=== PATIENT | male | born 1960 | race Caucasian/White ===

== ENCOUNTER → 2016-12-10 | Outpatient (CLI) | payer BC ==
[~2016-12-10] MED LIST: HYDR-3702 PO; NO HOME MEDICATIONS
[2016-12-10 12:05] VITALS: BP 130/82
--- NOTE | 2016-12-10 12:05 | Urgent Care T Sheet Gen (E) ---
Intake General Temperature (Fahrenheit): 97.9 Pulse: 74 Blood Pressure Systolic: 130 Blood Pressure Diastolic: 82 Respirations: 20 SPO2: 97 Description of Symptoms Patient presents with illness x 1 month. States the symptoms worsened over the past few days. Notes nasal congestion, PND and productive cough. No meds to treat his symptoms. States he figured it was a cold and would resolve on it's own. History of Present Illness Allergies: Coded Allergies: No Known Drug Allergies (Unverified , 03/30/14) Home Meds Active Scripts Hydrocodone/Acetaminophen ([place] 5mg/325mg)1 Each Tablet1 Each PO Q4H PRN PAIN # 15 Prov:ESTUARDO KELLY MD 03/30/14 Reported Medications No Home Medications Ea 03/30/14 Respiratory Constitutional Symptoms: No Fever, Malaise EENTM: Nose Congestion Throat pain Respiratory: Cough Cardiovascular: No symptoms reported Gastrointestinal/Abdominal: No symptoms reported All Other Systems Reviewed Remaining Systems: All other systems reviewed with negative findings Past [id number] Hx Surgeries/Hospitalizations Hospitalization/Surgery Hx: R ANKLE, TRIGGER FINGER CYST REMOVAL Respiratory Respiratory History: None Cardiovascular Cardiovascular History: Hypercholesterolemia Reproductive System Sexually Transmitted Diseases: No Gastrointestinal GI/Endocrine History: Thyroid disorder Diabetes Diabetes: No HEENT Impaired Vision: Contacts Hearing Impaired: None Integumentary Integumentary History: Other, see comments Comment: LACERATION Psychosocial Behavior Disorders: None Physical Exam Physical Exam General Appearance: WD/WN No apparent distress Eyes, Ears, Nose, Throat Ex: TMs normal (air fluid bubbles) Pharyngeal erythema (cobblestone appearance) Other (red, swollen nasal turbinates) Neck Exam: Supple Lymphadenopathy Respiratory Exam: Lungs clear Normal breath sounds Cardiovascular Exam: Regular rate, rhythm Departure Urgent Care Impression Impression: Primary Impression: Sinusitis Qualified Code: J01.00 - Acute maxillary sinusitis, unspecified Departure Disposition: HOME OR SELF-CARE Condition: Stable Referrals: STEVIE HALLMAN MD (PCP) Additional Instructions: I have started the patient on a Z-pack, use as directed. I have also prescribed Prednisone 40mg daily x 3 days. This should help with inflammation/irritation. Rest. Fluids. No NSAIDs while on steroid Return as needed Patient understands DC instructions. All questions were answered. End of report . RAFITA STEELE Dec 10, 2016 12:05
== END ==
LOC: MHUC 11:12
PROVIDERS: ATTEND Physician Assistant
DX: J01.00 Acute maxillary sinusitis, unspecified (principal)
CPT/HCPCS: 99213